=== PATIENT | male | born 1975 | race Caucasian/White ===

== ENCOUNTER 2020-05-09 13:14 | Emergency (ER) | payer MEDICAID, OTHER ==
[~2020-05-09] VITALS: Ht 188 cm; Wt 81.6 kg
[2020-05-09] MEDS ORDERED: cefTRIAXone 1,000 MG/2.86 ml vial (IM ONLY) IM STA (13:38)
--- NOTE | 2020-05-09 13:43 | ED Integumentary General ---
General Chief Complaint: Skin/Wound Problems Stated Complaint: WOUND ON BUTTOCKS Nursing Triage Note: PT PRESENTS TO ED VIA POV FROM HOME WITH COMPLAINTS OF L BUTTOCK WOUND X 2 1/2 MONTHS FROM A WORK INJURY. PT REPORTS IT HAS STRTED DRAINING AND IS FOUL SMELLING. Source: patient Exam Limitations: no limitations History of Present Illness Date Seen by Provider: May 09, 2020 Time Seen by Provider: 13:26 Initial Comments Patient presents ER by private conveyance with chief complaint that 2-1/2 months ago he fell on a metal grate while at work and he it had been healing there is 2 small puncture wounds on his left buttock however in the past week or 2 he started covering it and alcohol and it was getting worse. He is having increased pain and discomfort but no fever chills. It is draining. Patient states he recently moved here from [place] and used to follow with a primary care doctor but does not take any medications or have any significant medical history. Allergies and Home Medications Allergies Coded Allergies: No Known Drug Allergies (Unverified , 05/09/20) Patient Home Medication List Home Medication List Reviewed: Yes Review of Systems Review of Systems Constitutional: No chills, No diaphoresis EENTM: No ear discharge, No ear pain Respiratory: No cough, No short of breath Cardiovascular: No chest pain, No palpitations Gastrointestinal: No abdominal pain, No nausea Genitourinary: No discharge, No dysuria Musculoskeletal: No back pain, No joint pain Skin: see HPI All Other Systems Reviewed Negative Unless Noted: Yes Past Zlaptbi-Quvpre-Uqjqax Hx Patient Social History Alcohol Use: Occasionally Uses Alcohol Beverage of Choice: Beer Recreational Drug Use: No Smoking Status: Current Everyday Smoker Type Used: Cigarettes Recent Foreign Travel: No Contact w/Someone Who Travel: No Recent Infectious Disease Expo: No Recent Hopitalizations: No Physical Abuse: No Sexual Abuse: No Mistreated: No Fear: No Seasonal Allergies Seasonal Allergies: No Past Medical History Surgeries: Yes (l femur fx repair) Respiratory: No Cardiac: No Neurological: No Genitourinary: No Gastrointestinal: No Musculoskeletal: No Endocrine: No HEENT: No Cancer: No Psychosocial: Yes Anxiety Integumentary: No Blood Disorders: No Adverse Reaction/Blood Tranf: No Physical Exam Vital Signs Vital Signs - First Documented 05/09/20 13:24 Temp 35.8 Pulse 73 Resp 18 B/P (MAP) 125/95 (105) Pulse Ox 98 Capillary Refill : Less Than 3 Seconds General Appearance: WD/WN, no apparent distress HEENT: PERRL/EOMI, pharynx normal Neck: full range of motion, supple, normal inspection Cardiovascular: normal peripheral pulses, regular rate, rhythm Respiratory: lungs clear, normal breath sounds, no respiratory distress, no acc essory muscle use Gastrointestinal: non tender, soft Skin: other (Purplish indurated firm tender 5 x 10 cm area over the left buttock with 2 ragged puncture wounds that appear to be old and are draining serous fluid only. No fluctuance palpable. No extension into the perineum) Progress/Results/Core Measures Results/Orders My Orders Orders - BLAINE MORRELL Ceftriaxone For Im Use (Rocephin For Im (05/09/20 13:38) Lidocaine 1% Inj 20 Ml (Xylocaine 1% Inj (05/09/20 13:45) Vital Signs/I&O 05/09/20 13:24 Temp 35.8 Pulse 73 Resp 18 B/P (MAP) 125/95 (105) Pulse Ox 98 Blood Pressure Mean: 105 Progress Progress Note : Time: 13:47 Progress Note Does not appear to extend towards a Teto's gangrene. Plan to give him a dose of Rocephin put him on Bactrim and have him follow-up outpatient with Dr. Thibodeaux. Called and alerted Dr. Thibodeaux to the case who will follow him in the clinic. Departure Impression Primary Impression: Wound, open, buttock Qualified Codes: S31.829A - Unspecified open wound of left buttock, initial encounter Disposition: 01 HOME, SELF-CARE Condition: Stable Departure-Patient Inst. Decision time for Depature: 13:49 Referrals: BROOKS THIBODEAUX DO NO,LOCAL PHYSICIAN (PCP) Primary Care Physician Patient Instructions: Wound Care (DC) Add. Discharge Instructions: Keep the wound clean with regular soap and water only. No alcohol, hydrogen peroxide, chlorhexidine, iodine. Use regular soap and water, shampoo, body wash etc. Keep a clean, dry gauze dressing over the wounds to catch the drainage. Change it daily or more frequently if it becomes soiled. Call the surgeon, Dr. Thibodeaux and request follow-up appointment by early next week. Bactrim 1 tablet twice a day with food. Stay off of your left buttock. All discharge instructions reviewed with patient and/or family. Voiced understanding. Scripts Sulfamethoxazole/Trimethoprim (Bactrim Ds Tablet) 1 Each Tablet 1 EACH PO BID for 7 Days, #14 TAB 0 Refills Prov: BLAINE MORRELL 05/09/20 Work/School Note: Work Release Form Date Seen in the Emergency Department: May 09, 2020 Return to Work: May 10, 2020 Restrictions: Need Release from Doctor Other Restrictions Listed Below: Minimize sitting position until 05/17/2019 Copy Copies To 1: BROOKS THIBODEAUX DO BLAINE MORRELL May 09, 2020 13:43
[2020-05-09] MEDS ORDERED: LIDOCAINE 1% INJ 20 ML 20 ML VIAL INJ ONE (13:45)
[2020-05-09] MEDS ORDERED: SULF1TAB35 PO (13:51)
[2020-05-09] MEDS ORDERED: TETANUS,DIPTH,PERTUSS P/F (BOOSTRIX) 0.5 ML VIAL IM ONE (14:00)
[2020-05-09 14:04] VITALS: BP 124/90
== END 2020-05-09 14:04 | disposition home or self-care (01) ==
LOC: ER 13:18
DX: S31.823A Puncture wound without foreign body of left buttock, initial encounter (principal); F17.210 Nicotine dependence, cigarettes, uncomplicated; Z23 Encounter for immunization; W18.39XA Other fall on same level, initial encounter
CPT/HCPCS: 90715; 99284

== ENCOUNTER 2020-09-07 15:20 | Inpatient (IN) | payer MEDICAID ==
[~2020-09-07] VITALS: Ht 188 cm; Wt 78.1 kg
[~2020-09-07 15:20] MED LIST: SULF1TAB35 PO
[2020-09-07] MEDS ORDERED: VANCOMYCIN INJECTION 1,000 MG in NS (IVPB) 250 ML IV SCH (15:45)
[2020-09-07] MEDS ORDERED: PIPERACILLIN SODIUM/TAZOBACTAM 4.5 GM in NS (IVPB) 100 ML IV ONE (15:45)
--- NOTE | 2020-09-07 15:47 | ED Integumentary General ---
General Chief Complaint: Skin/Wound Problems Stated Complaint: WOUND INFECTION Nursing Triage Note: ARRIVED VIA AMB TO ROOM 7. STATES APPX 6 MONTHS AGO AT WORK HE SLIPPED ON A GRATE THAT STABBED HIM IN THE LEFT BUTTOCK. HAS HAD OFF AND ON INFECTIONS IN THIS AREA. PT STATES IT IS PAINFUL TO SIT AND IS DRAINING. Source: patient Exam Limitations: no limitations History of Present Illness Date Seen by Provider: Sep 07, 2020 Time Seen by Provider: 15:45 Initial Comments Ongoing wound infection to the left buttock. This began after he fell on a grate while at work in [place] in mid February and sustained two puncture wounds over the left ischium. He moved here in March and was seen here in April. He was given a prescription for antibiotics which did temporarily help to improve his symptoms. However over the past few days has been getting worse and has had some symptoms that remind him of when he first comes down with a cold--general malaise, achy. He is otherwise healthy and does not take any medications. Timing/Duration: constant Severity: moderate Associated Symptoms: denies symptoms Allergies and Home Medications Allergies Coded Allergies: No Known Drug Allergies (Unverified , 05/09/20) Home Medications No Active Prescriptions or Reported Meds Patient Home Medication List Home Medication List Reviewed: Yes Review of Systems Review of Systems Constitutional: see HPI EENTM: see HPI Respiratory: no symptoms reported Cardiovascular: no symptoms reported Genitourinary: no symptoms reported Musculoskeletal: see HPI Skin: no symptoms reported Psychiatric/Neurological: No Symptoms Reported Endocrine: No Symptoms Reported Past Uddiopi-Yyigrk-Ynazer Hx Patient Social History Alcohol Use: Occasionally Uses Alcohol Beverage of Choice: Beer Smoking Status: Current Everyday Smoker Type Used: Cigarettes Recent Infectious Disease Expo: No Recent Hopitalizations: No Seasonal Allergies Seasonal Allergies: No Past Medical History Surgeries: Yes (l femur fx repair) Respiratory: No Cardiac: No Neurological: No Genitourinary: No Gastrointestinal: No Musculoskeletal: No Endocrine: No HEENT: No Cancer: No Psychosocial: Yes Anxiety Integumentary: No Blood Disorders: No Adverse Reaction/Blood Tranf: No Physical Exam Vital Signs Vital Signs - First Documented 09/07/20 15:30 Temp 37.2 Pulse 97 Resp 16 B/P (MAP) 143/96 (112) Pulse Ox 97 O2 Delivery Room Air Capillary Refill : Less Than 3 Seconds General Appearance: WD/WN, no apparent distress HEENT: PERRL/EOMI, normal ENT inspection Cardiovascular: regular rate, rhythm, no murmur Respiratory: normal breath sounds, no respiratory distress, no accessory muscle use Extremities: normal range of motion, non-tender Neurologic/Psychiatric: alert, normal mood/affect, oriented x 3 Skin: normal color, warm/dry, other (The left buttock is nearly entirely indurated and one large conglomeration of abscesses with several small open areas of drainage) Skin Problem Character: abscess Progress/Results/Core Measures Results/Orders Lab Results Laboratory Tests Test 09/07/20 15:50 Range/Units White Blood Count 6.6 4.3-11.0 10^3/uL Red Blood Count 4.17 L 4.30-5.52 10^6/uL Hemoglobin 13.3 13.3-17.7 g/dL Hematocrit 40 40-54 % Mean Corpuscular Volume 95 80-99 fL Mean Corpuscular Hemoglobin 32 25-34 pg Mean Corpuscular Hemoglobin Concent 34 32-36 g/dL Red Cell Distribution Width 12.1 10.0-14.5 % Platelet Count 179 130-400 10^3/uL Mean Platelet Volume 9.2 9.0-12.2 fL Immature Granulocyte % (Auto) 0 % Neutrophils (%) (Auto) 57 42-75 % Lymphocytes (%) (Auto) 23 12-44 % Monocytes (%) (Auto) 17 H 0-12 % Eosinophils (%) (Auto) 3 0-10 % Basophils (%) (Auto) 1 0-10 % Neutrophils # (Auto) 3.8 1.8-7.8 10^3/uL Lymphocytes # (Auto) 1.5 1.0-4.0 10^3/uL Monocytes # (Auto) 1.1 H 0.0-1.0 10^3/uL Eosinophils # (Auto) 0.2 0.0-0.3 10^3/uL Basophils # (Auto) 0.1 0.0-0.1 10^3/uL Immature Granulocyte # (Auto) 0.0 0.0-0.1 10^3/uL Neutrophils % (Manual) 55 % Lymphocytes % (Manual) 31 % Monocytes % (Manual) 5 % Eosinophils % (Manual) 5 % Band Neutrophils 1 % Blood Morphology Comment NORMAL Sodium Level 134 L 135-145 MMOL/L Potassium Level 3.6 3.6-5.0 MMOL/L Chloride Level 98 98-107 MMOL/L Carbon Dioxide Level 26 21-32 MMOL/L Anion Gap 10 5-14 MMOL/L Blood Urea Nitrogen 6 L 7-18 MG/DL Creatinine 0.74 0.60-1.30 MG/DL Estimat Glomerular Filtration Rate > 60 BUN/Creatinine Ratio 8 Glucose Level 86 70-105 MG/DL Lactic Acid Level 0.97 0.50-2.00 MMOL/L Calcium Level 8.2 L 8.5-10.1 MG/DL Corrected Calcium 8.8 8.5-10.1 MG/DL Total Bilirubin 0.4 0.1-1.0 MG/DL Aspartate Amino Transf (AST/SGOT) 45 H 5-34 U/L Alanine Aminotransferase (ALT/SGPT) 29 0-55 U/L Alkaline Phosphatase 73 40-136 U/L Total Protein 7.6 6.4-8.2 GM/DL Albumin 3.3 3.2-4.5 GM/DL My Orders Orders - REGINA MARTINEZ APRN Cbc With Automated Diff (09/07/20 15:43) Comprehensive Metabolic Panel (09/07/20 15:43) Ed Iv/Invasive Line Start (09/07/20 15:43) Piperacillin Sodium/Tazobactam (Zosyn Vi (09/07/20 15:45) Vancomycin Injection (Vancomycin Injecti (09/07/20 15:45) Wound Culture (09/07/20 15:44) Blood Culture (09/07/20 15:44) Lactic Acid Analyzer (09/07/20 15:44) Lidocaine/Epi 1% 1:100,000 (Lidocaine 1% (09/07/20 16:00) Fentanyl Inj (Sublimaze Injection) (09/07/20 16:00) Lidocaine/Epi 2% 1:100,000 (Xylocaine/Ep (09/07/20 15:50) Manual Differential (09/07/20 15:50) Hydromorphone Injection (Dilaudid Inject (09/07/20 16:15) Medications Given in ED Current Medications Medications Dose Ordered Sig/Kala Route Start Time Stop Time Status Last Admin Dose Admin Fentanyl Citrate 50 mcg ONCE ONCE IVP 09/07/20 16:00 09/07/20 16:01 DC 09/07/20 15:59 50 MCG Hydromorphone HCl 0.5 mg ONCE ONCE IV 09/07/20 16:15 09/07/20 16:16 DC 09/07/20 16:18 0.5 MG Piperacillin Sod/ Tazobactam Sod 4.5 gm/Sodium Chloride 100 ml @ 200 mls/hr ONCE ONCE IV 09/07/20 15:45 09/07/20 16:14 DC 09/07/20 16:44 200 MLS/HR Vital Signs/I&O 09/07/20 15:30 Temp 37.2 Pulse 97 Resp 16 B/P (MAP) 143/96 (112) Pulse Ox 97 O2 Delivery Room Air Blood Pressure Mean: 112 Departure Communication (Admissions) 1619-Dr. Thibodeaux has been down here to see the patient. We gave him 50 mcg of fentanyl then to add incision and drainage under local anesthesia here. Wounds were then packed with plain packing. Impression Primary Impression: Cellulitis and abscess of buttock Disposition: ADMITTED INPATIENT Condition: Stable Admissions Decision to Admit Reason: Admit from ER (General) Decision to Admit/Date: Sep 07, 2020 Time/Decision to Admit Time: 16:21 Departure-Patient Inst. Referrals: NO,LOCAL PHYSICIAN (PCP/Family) Primary Care Physician Scripts No Active Prescriptions or Reported Meds Images Torso/Trunk 1 - Cellulitis, Tenderness REGINA MARTINEZ APRN Sep 07, 2020 15:47
[2020-09-07] MEDS ORDERED: LIDOCAINE/EPI 2% 1:100,00 (XYLOCAINE) 20 ML VIAL ONE (15:50)
[2020-09-07 15:58] LABS: BASOPHILS # (AUTO) 0.1 10^3/uL (0.0-0.1); BASOPHILS % (AUTO) 1 % (0-10); EOSINOPHILS # (AUTO) 0.2 10^3/uL (0.0-0.3); EOSINOPHILS % (AUTO) 3 % (0-10); HEMATOCRIT 40 % (40-54); HEMOGLOBIN 13.3 g/dL (13.3-17.7); LYMPHOCYTES # (AUTO) 1.5 10^3/uL (1.0-4.0); LYMPHOCYTES % (AUTO) 23 % (12-44); MEAN CORPUSCULAR HEMOGLOBIN 32 pg (25-34); MEAN CORPUSCULAR HGB CONC 34 g/dL (32-36); MEAN CORPUSCULAR VOLUME 95 fL (80-99); MEAN PLATELET VOLUME 9.2 fL (9.0-12.2); MONOCYTES # (AUTO) 1.1 10^3/uL (0.0-1.0); MONOCYTES % (AUTO) 17 % (0-12); NEUTROPHILS # (AUTO) 3.8 10^3/uL (1.8-7.8); NEUTROPHILS % (AUTO) 57 % (42-75); PLATELET COUNT 179 10^3/uL (130-400); WHITE BLOOD COUNT 6.6 10^3/uL (4.3-11.0)
[2020-09-07] MEDS ORDERED: fentaNYL INJ 100 MCG/2 ML AMP IVP ONE (16:00)
[2020-09-07] MEDS ORDERED: LIDOCAINE/EPI 1%-1:100,000 (XYLOCAINE) 50 ML INJ ONE (16:00)
[2020-09-07] MEDS ORDERED: HYDROmorphone 2 MG/ML VIAL (DILAUDID) IV ONE (16:15)
[2020-09-07 16:25] LABS: BAND NEUTROPHILS 1 %; EOSINOPHILS % (MANUAL) 5 %; LYMPHOCYTES % (MANUAL) 31 %; MONOCYTES % (MANUAL) 5 %; NEUTROPHILS % (MANUAL) 55 %; RBC MORPH NORMAL
[2020-09-07 16:30] LABS: ALANINE AMINOTRANSFERASE 29 U/L (0-55); ALBUMIN 3.3 GM/DL (3.2-4.5); ALKALINE PHOSPHATASE 73 U/L (40-136); BILIRUBIN,TOTAL 0.4 MG/DL (0.1-1.0); BUN/CREATININE RATIO 8; CALCIUM 8.2 MG/DL (8.5-10.1); CARBON DIOXIDE 26 MMOL/L (21-32); CHLORIDE 98 MMOL/L (98-107); CREATININE SERUM 0.74 MG/DL (0.60-1.30); GFR ESTIMATED > 60; GLUCOSE 86 MG/DL (70-105); POTASSIUM 3.6 MMOL/L (3.6-5.0); SODIUM 134 MMOL/L (135-145); TOTAL PROTEIN 7.6 GM/DL (6.4-8.2)
[2020-09-07] MEDS ORDERED: LIDOCAINE/EPI 2% 1:100,00 (XYLOCAINE) 20 ML VIAL INJ ONE (16:30)
[2020-09-07 17:20] VITALS: BP 120/76
[2020-09-07] MEDS ORDERED: VANCOMYCIN 1250 MG/NS 250 ML IVPB IV NR ×2 (18:00)
[2020-09-07] MEDS ORDERED: ONDANSETRON 4 MG/2 ML (SDV) Z0FRAN IV PRN (18:00)
[2020-09-07] MEDS: HYDROmorphone 2 MG/ML VIAL (DILAUDID) IV PRN (18:30)
[2020-09-07] MEDS: LACTATED RINGERS 1,000 ML IV SCH (18:30)
[2020-09-07 19:10] VITALS: BP 109/73
--- NOTE | 2020-09-07 20:59 | History & Physical-Surgical ---
History of Present Illness History of Present Illness Reason for visit/HPI Chief complaint left buttock abscess Patient is a 45-year-old male who has a left buttock abscess that he states started last February. He states this occurred after a great at an [employer] in company stuck him in 2 places in the left buttock. He had ongoing infections to the left buttock. He states he had taken antibiotics which did improve this temporarily. He states that it has had drainage. He has moderate tenderness to the left buttock area. He is having drainage from the area that is purulent. Sitting on the area makes it worse. The antibiotics he took previously did make a little bit better he states. Denies any nausea vomiting fever sweats chills shortness of breath or chest pain. Date of Admission Sep 07, 2020 at 16:15 Date Seen by a Provider: Sep 07, 2020 Time Seen by a Provider: 16:00 I consulted on this patient on 09/07/20 20:53 Attending Physician Brooks Thibodeaux DO Admitting Physician No,Local Physician Consult Allergies and Home Medications Allergies Coded Allergies: No Known Drug Allergies (Unverified , 05/09/20) Home Medications No Active Prescriptions or Reported Meds Patient Home Medication List Home Medication List Reviewed: Yes Past Qpromni-Gqddnn-Utxarl Hx Patient Social History Smoking Status: Light Tobacco Smoker Type Used: Cigarettes Recent Hopitalizations: No Alcohol Use?: Yes Have you traveled recently?: No Seasonal Allergies Seasonal Allergies: No Surgeries History of Surgeries: Yes (l femur fx repair) Respiratory History of Respiratory Disorde: No Cardiovascular History of Cardiac Disorders: No Neurological History of Neurological Disord: No Genitourinary History of Genitourinary Disor: No Gastrointestinal History of Gastrointestinal Di: No Musculoskeletal History of Musculoskeletal Dis: No Endocrine History of Endocrine Disorders: No HEENT History of HEENT Disorders: No Cancer History of Cancer: No Psychosocial History of Psychiatric Problem: Yes Behavioral Health Disorders: Anxiety Integumentary History of Skin or Integumenta: No Blood Transfusions History of Blood Disorders: No Adverse Reaction to a Blood Tr: No Reviewed Nursing Assessment Reviewed/Agree w Nursing PMH: Yes Family Medical History Significant Family History: No Pertinent Family Hx Review of Systems Constitutional: No chills, No diaphoresis EENTM: No blurred vision, No double vision Respiratory: No cough, No dyspnea on exertion Cardiovascular: No chest pain, No palpitations Gastrointestinal: No abdominal pain, No nausea, No vomiting Genitourinary: No decreased output, No discharge Musculoskeletal: No back pain, No joint pain Skin: other (Changes of erythema and drainage from left buttock) Psychiatric/Neurological: Denies Anxiety, Denies Depressed, Denies Emotional Problems All Other Systems Reviewed Negative Unless Noted: Yes (Negative excepted noted.) Physical Exam Vital Signs Vital Signs - First Documented 09/07/20 15:30 Temp 37.2 Pulse 97 Resp 16 B/P (MAP) 143/96 (112) Pulse Ox 97 O2 Delivery Room Air Capillary Refill : Less Than 3 Seconds Height, Weight, BMI Height: '" Weight: lbs. oz. kg; 21.24 BMI Method: General Appearance: No Apparent Distress HEENT: PERRL/EOMI, TMs Normal, Normal ENT Inspection Neck: Normal Inspection, Non Tender Respiratory: Chest Non Tender, Lungs Clear, No Accessory Muscle Use Cardiovascular: Regular Rate, Rhythm, No JVD Gastrointestinal: Non Tender, Soft Rectal: Deferred Back: No CVA Tenderness, No Vertebral Tenderness Extremity: Non Tender, No Calf Tenderness Neurologic/Psychiatric: Alert, Oriented x3, Normal Mood/Affect Skin: Warm/Dry, Erythema (Left buttocks with some areas of fluctuance and some areas of drainage multiple areas of induration as well overall dimensions approximately 12 x 10 cm, some area goes just to the perineum) Lymphatic: No Adenopathy Data Review Labs Laboratory Tests 09/07/20 15:50: White Blood Count 6.6, Red Blood Count 4.17L, Hemoglobin 13.3, Hematocrit 40, Mean Corpuscular Volume 95, Mean Corpuscular Hemoglobin 32, Mean Corpuscular Hemoglobin Concent 34, Red Cell Distribution Width 12.1, Platelet Count 179, Mean Platelet Volume 9.2, Immature Granulocyte % (Auto) 0, Neutrophils (%) (Auto) 57, Lymphocytes (%) (Auto) 23, Monocytes (%) (Auto) 17H, Eosinophils (%) (Auto) 3, Basophils (%) (Auto) 1, Neutrophils # (Auto) 3.8, Lymphocytes # (Auto) 1.5, Monocytes # (Auto) 1.1H, Eosinophils # (Auto) 0.2, Basophils # (Auto) 0.1, Immature Granulocyte # (Auto) 0.0, Neutrophils % (Manual) 55, Lymphocytes % (Manual) 31, Monocytes % (Manual) 5, Eosinophils % (Manual) 5, Band Neutrophils 1, Blood Morphology Comment NORMAL, Sodium Level 134L, Potassium Level 3.6, Chloride Level 98, Carbon Dioxide Level 26, Anion Gap 10, Blood Urea Nitrogen 6L , Creatinine 0.74, Estimat Glomerular Filtration Rate > 60, BUN/Creatinine Ratio 8, Glucose Level 86, Lactic Acid Level 0.97, Calcium Level 8.2L, Corrected Calcium 8.8, Total Bilirubin 0.4, Aspartate Amino Transf (AST/SGOT) 45H, Alanine Aminotransferase (ALT/SGPT) 29, Alkaline Phosphatase 73, Total Protein 7.6, Albumin 3.3 Assessment/Plan Assessment/Plan Admission Diagonsis Left buttock abscess Left buttock cellulitis History of puncture wound Patient is a 45-year-old male with left buttock that appears to have abscess with fluctuance and small areas of drainage. There is lots of induration present still. Patient to be admitted for IV antibiotics. Patient understands risk and benefits of having incision and drainage performed here in the ER which she understands and wishes to proceed. Please see that dictation. Patient still may need further surgical intervention to try to improve this. Patient will be n.p.o. after midnight. Patient had all questions answered. Pain controlled. Admission Status: Inpatient Order (span 2 midnights) Reason for Inpatient Admission: Patient will need IV antibiotics and continued monitoring and may need further surgical intervention and wound care which will require at minimum to midnight stays. Assessment/Plan Left buttock abscess Left buttock cellulitis History of puncture wound Patient is a 45-year-old male with left buttock that appears to have abscess with fluctuance and small areas of drainage. There is lots of induration present still. Patient to be admitted for IV antibiotics. Patient understands risk and benefits of having incision and drainage performed here in the ER which she understands and wishes to proceed. Please see that dictation. Patient still may need further surgical intervention to try to improve this. Patient will be n.p.o. after midnight. Patient had all questions answered. Pain controlled. BROOKS THIBODEAUX DO Sep 07, 2020 20:59
[2020-09-07] MEDS: DOCUSATE SODIUM 100 MG (COLACE) CAP PO SCH (21:09)
[2020-09-07] MEDS: PIPERACILLIN/TAZO 4.5 GM/NS 100 ML IV SCH ×2 (23:53)
[2020-09-07] MEDS: HYDROcodone/APAP 5 MG/325 MG (LORTAB) TAB PO PRN (23:54)
[2020-09-07 23:56] VITALS: BP 117/77
--- NOTE | 2020-09-08 01:28 | OPERATIVE REPORT ---
DATE OF SERVICE: 09/07/2020 PREOPERATIVE DIAGNOSIS: Left buttock abscess. POSTOPERATIVE DIAGNOSIS: Left buttock abscess. PROCEDURE: Incision and drainage of left buttock abscess. SURGEON: Brooks Thibodeaux DO ANESTHESIA: Local. ESTIMATED BLOOD LOSS: Minimal. COMPLICATIONS: None. INDICATIONS: The patient is a 45-year-old male who has had ongoing wound infection of the left buttock. 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 The patient states that he has had this flareup with infection, which he was given antibiotics, which did improve it. However, over the last few days, he has had worsening symptoms and discomfort. He states that sitting on makes worse. He has had some drainage from it. The patient was discussed risks and benefits of have the area have incision and drainage and he understands and wishes to proceed. DESCRIPTION OF PROCEDURE: The patient was prepped and draped in sterile fashion of left buttock over the area of fluctuance. Local anesthetic was infiltrated and 11 blade scalpel was used to make an incision that was through the skin and into the subcutaneous tissue. A pocket was present, which expressed some fluid, cultures have already been obtained. Blunt dissection was then used to break up some loculations and there is a separate portion just inferior to the area of incision that was separate that had fluctuance. This area had local anesthetic infiltrated and 11 blade scalpel was used to make a small skin incision, which was then erupted a small amount of purulent-appearing material. The wounds were then irrigated and packed. The area was washed, and dried and sterile bandage was applied. The patient tolerated procedure well without any complications. RECOMMENDATIONS: The patient will be admitted for IV antibiotics and continued monitoring. The patient understands he may need further surgical intervention, but we will continue to monitor. Job ID: [id number] DocumentID: [id number] Dictated Date: 09/07/2020 20:36:01 Motion Picture Equipment Supervisor Date: 09/08/2020 01:26:54 Dictated By: BROOKS THIBODEAUX DO [facility]
[2020-09-08] MEDS: LACTATED RINGERS 1,000 ML IV SCH ×4 (03:51→21:43)
[2020-09-08] MEDS: VANCOMYCIN 1 GM/NS 250 ML IVPB IV SCH ×6 (03:51→17:51)
[2020-09-08 03:53] VITALS: BP 111/76
[2020-09-08] MEDS: HYDROmorphone 2 MG/ML VIAL (DILAUDID) IV PRN ×4 (04:01→23:48)
[2020-09-08] MEDS: PIPERACILLIN/TAZO 4.5 GM/NS 100 ML IV SCH ×6 (06:42→23:44)
[2020-09-08 07:20] VITALS: BP 124/83
[2020-09-08 08:44] LABS: BASOPHILS % (AUTO) 1 % (0-10); EOSINOPHILS # (AUTO) 0.1 10^3/uL (0.0-0.3); EOSINOPHILS % (AUTO) 2 % (0-10); HEMATOCRIT 36 % (40-54); HEMOGLOBIN 12.3 g/dL (13.3-17.7); LYMPHOCYTES # (AUTO) 0.7 10^3/uL (1.0-4.0); LYMPHOCYTES % (AUTO) 15 % (12-44); MEAN CORPUSCULAR HEMOGLOBIN 32 pg (25-34); MEAN CORPUSCULAR HGB CONC 34 g/dL (32-36); MEAN CORPUSCULAR VOLUME 94 fL (80-99); MEAN PLATELET VOLUME 9.4 fL (9.0-12.2); MONOCYTES # (AUTO) 0.8 10^3/uL (0.0-1.0); MONOCYTES % (AUTO) 16 % (0-12); NEUTROPHILS # (AUTO) 3.1 10^3/uL (1.8-7.8); NEUTROPHILS % (AUTO) 65 % (42-75); PLATELET COUNT 143 10^3/uL (130-400); WHITE BLOOD COUNT 4.8 10^3/uL (4.3-11.0)
[2020-09-08 09:05] LABS: CHLORIDE 100 MMOL/L (98-107); POTASSIUM 3.8 MMOL/L (3.6-5.0); SODIUM 135 MMOL/L (135-145)
[2020-09-08 09:06] LABS: CALCIUM 7.9 MG/DL (8.5-10.1)
[2020-09-08 09:07] LABS: GLUCOSE 106 MG/DL (70-105)
[2020-09-08 09:09] LABS: CARBON DIOXIDE 24 MMOL/L (21-32)
[2020-09-08 09:11] LABS: CREATININE SERUM 0.74 MG/DL (0.60-1.30); GFR ESTIMATED > 60
[2020-09-08 09:12] LABS: BUN/CREATININE RATIO 7
[2020-09-08] MEDS ORDERED: ACETAMINOPHEN 500 MG TAB (TYLENOL) ONE (09:31)
[2020-09-08] MEDS: DOCUSATE SODIUM 100 MG (COLACE) CAP PO SCH ×2 (09:53→19:36)
[2020-09-08] MEDS: HYDROcodone/APAP 5 MG/325 MG (LORTAB) TAB PO PRN ×2 (09:53→19:58)
--- NOTE | 2020-09-08 11:12 | Progress Note - Surgery ---
Subjective Date Seen by a Provider: September 08, 2020 Time Seen by a Provider: 11:07 Subjective/Events-last exam Patient still with pain in the left buttock. Still having some drainage as well. Patient had incision and drainage in the ER yesterday. Patient is currently n.p.o. Patient with fever. Denies nausea vomiting fever sweats chills shortness of breath or chest pain. Focused Exam Lactate Level 09/07/20 15:50: Lactic Acid Level 0.97 Objective Exam Vital Signs Date Time Temp Pulse Resp B/P (MAP) Pulse Ox O2 Delivery O2 Flow Rate FiO2 09/08/20 08:00 95 Room Air 09/08/20 07:20 40.2 101 18 124/83 (97) 94 Room Air 09/08/20 03:53 37.1 77 18 111/76 (88) 99 Room Air 09/08/20 00:24 38.7 09/07/20 23:56 38.5 97 20 117/77 (90) 99 Room Air 09/07/20 20:58 95 Room Air 09/07/20 19:10 37.5 99 20 109/73 (85) 95 Room Air 09/07/20 17:37 Room Air 09/07/20 17:20 37.0 98 18 120/76 (91) 99 Room Air 09/07/20 17:13 81 16 135/81 98 Room Air 09/07/20 15:30 37.2 97 16 143/96 (112) 97 Room Air I & O 09/08/20 07:00 Intake Total 1728.5 ml Output Total 0 ml Balance 1728.5 ml Capillary Refill : Less Than 3 Seconds General Appearance: No Apparent Distress HEENT: PERRL/EOMI, TMs Normal, Normal ENT Inspection Neck: Full Range of Motion, Normal Inspection, Non Tender Respiratory: Chest Non Tender, No Accessory Muscle Use Cardiovascular: Regular Rate, Rhythm, No JVD Gastrointestinal: non tender, soft Extremity: Non Tender, No Calf Tenderness Neurologic/Psychiatric: Alert, Oriented x3, Normal Mood/Affect Skin: Warm/Dry, Erythema (with packed wound once removed inside still slight drainage mildly purulent/serous fluid tender to touch, packing removed ) Lymphatic: No Adenopathy Results Lab Laboratory Tests 09/07/20 15:50: White Blood Count 6.6, Red Blood Count 4.17L, Hemoglobin 13.3, Hematocrit 40, Mean Corpuscular Volume 95, Mean Corpuscular Hemoglobin 32, Mean Corpuscular Hemoglobin Concent 34, Red Cell Distribution Width 12.1, Platelet Count 179, Mean Platelet Volume 9.2, Immature Granulocyte % (Auto) 0, Neutrophils (%) (Auto) 57, Lymphocytes (%) (Auto) 23, Monocytes (%) (Auto) 17H, Eosinophils (%) (Auto) 3, Basophils (%) (Auto) 1, Neutrophils # (Auto) 3.8, Lymphocytes # (Auto) 1.5, Monocytes # (Auto) 1.1H, Eosinophils # (Auto) 0.2, Basophils # (Auto) 0.1, Immature Granulocyte # (Auto) 0.0, Neutrophils % (Manual) 55, Lymphocytes % (Manual) 31, Monocytes % (Manual) 5, Eosinophils % (Manual) 5, Band Neutrophils 1, Blood Morphology Comment NORMAL, Sodium Level 134L, Potassium Level 3.6, Chloride Level 98, Carbon Dioxide Level 26, Anion Gap 10, Blood Urea Nitrogen 6L , Creatinine 0.74, Estimat Glomerular Filtration Rate > 60, BUN/Creatinine Ratio 8, Glucose Level 86, Lactic Acid Level 0.97, Calcium Level 8.2L, Corrected Calcium 8.8, Total Bilirubin 0.4, Aspartate Amino Transf (AST/SGOT) 45H, Alanine Aminotransferase (ALT/SGPT) 29, Alkaline Phosphatase 73, Total Protein 7.6, Albumin 3.3 09/08/20 08:30: White Blood Count 4.8, Red Blood Count 3.85L, Hemoglobin 12.3L, Hematocrit 36L, Mean Corpuscular Volume 94, Mean Corpuscular Hemoglobin 32, Mean Corpuscular Hemoglobin Concent 34, Red Cell Distribution Width 11.9, Platelet Count 143, Mean Platelet Volume 9.4, Immature Granulocyte % (Auto) 0, Neutrophils (%) (Auto) 65, Lymphocytes (%) (Auto) 15, Monocytes (%) (Auto) 16H, Eosinophils (%) (Auto) 2, Basophils (%) (Auto) 1, Neutrophils # (Auto) 3.1, Lymphocytes # (Auto) 0.7L, Monocytes # (Auto) 0.8, Eosinophils # (Auto) 0.1, Basophils # (Auto) 0.0, Immature Granulocyte # (Auto) 0.0, Sodium Level 135, Potassium Level 3.8, Chloride Level 100, Carbon Dioxide Level 24, Anion Gap 11, Blood Urea Nitrogen 5L, Creatinine 0.74, Estimat Glomerular Filtration Rate > 60, BUN/Creatinine Ratio 7, Glucose Level 106H, Calcium Level 7.9L, Procalcitonin 0.12H Microbiology 09/07/20 Gram Stain - Final, Resulted 09/07/20 Wound Culture, Resulted Pending Assessment/Plan Assessment/Plan Assessment/Plan Left buttock abscess Left buttock cellulitis History of puncture wound Patient is a 45-year-old male with left buttock that appears to have abscess possible with fluctuance still and small areas of drainage. There is lots of induration present still. Patient to continue IV antibiotics. I discussed going to the operating room today and doing further incision and drainage and debridment if needed, patient will not consent to this at this time, understanding risks and benefits. Patient will be n.p.o. after midnight again so if he looks like he would again benefit further surgical intervention he will be npo. Patient had all questions answered. BROOKS IBRAHIM DO September 08, 2020 11:12
[2020-09-08] MEDS ORDERED: ACETAMINOPHEN 325 MG TABLET PO PRN (11:15)
[2020-09-08 11:20] VITALS: BP 124/83
--- NOTE | 2020-09-08 11:33 | Consultation - Hospitalist ---
HPI History of Present Illness: HPI/Chief Complaint Terrence Carroll is a 45-year-old male with no known past medical history who presented with a left buttock abscess. He had a puncture wound about 6 months ago and received a course of oral antibiotics. He did not follow-up with anyone after this. He says that the wound never resolved. He has been having fevers. He has no other complaints or concerns. He occasionally smokes cigarettes and drinks alcohol, but not every day. Source: patient Exam Limitations: no limitations Date Seen 09/08/20 Attending Physician Sai Thibodeaux DO PCP No,Local Physician Referring Physician Date of Admission Sep 07, 2020 at 16:15 Home Medications & Allergies Home Medications Reviewed patient Home Medication Reconciliation performed by pharmacy medication reconciliations maintenance parts technician and/or nursing. Patients Allergies have been reviewed. Allergies Allergies Coded Allergies No Known Drug Allergies ([id number]/20) Patient Social History Tobacco Use?: Yes Smoking Status: Light Tobacco Smoker Smokeless Tobacco Frequency: Light User Use of E-Cig and/or Vaping dev: No Substance use?: No Alcohol Use?: Yes Alcohol type: Beer Alcohol Frequency: Several times a month Pt stated abuse/neglect: No Immunizations Up To Date Influenza Vaccine Up-to-Date: No; Not Current Tetanus Booster (TDap): Less Than 5 Years Hepatitis A: No Hepatitis B: No TB Skin Test: Negative Current Status Do you have an Advance Directi: No Communicates: Verbally Primary Language: Faroese Preferred Spoken Language: Faroese Is interpretation needed?: No Implanted or Applied Medical D: None Past Medical History Tobacco abuse Family Medical History Family Hx: Motherbreast cancer Review of Systems Constitutional: fever EENTM: no symptoms reported Respiratory: no symptoms reported Cardiovascular: no symptoms reported Gastrointestinal: no symptoms reported Genitourinary: no symptoms reported Musculoskeletal: no symptoms reported Skin: no symptoms reported Psychiatric/Neurological: No Symptoms Reported Physical Exam Physical Exam Vital Signs Vital Signs - First Documented 09/07/20 15:30 Temp 37.2 Pulse 97 Resp 16 B/P (MAP) 143/96 (112) Pulse Ox 97 O2 Delivery Room Air Capillary Refill : Less Than 3 Seconds Height, Weight, BMI Height: '" Weight: lbs. oz. kg; 21.24 BMI Method: General Appearance: No Apparent Distress, WD/WN HEENT: PERRL/EOMI, Pharynx Normal Neck: Normal Inspection, Supple Respiratory: Lungs Clear, Normal Breath Sounds, No Respiratory Distress Cardiovascular: Regular Rate, Rhythm, No Edema, No Murmur Gastrointestinal: Normal Bowel Sounds, Non Tender, Soft Extremity: Other (Left buttock wound with bandage in place) Neurologic/Psychiatric: Alert, Oriented x3, Normal Mood/Affect Skin: Other (Left buttock wound with bandage in place) Lymphatic: No Adenopathy Results Results/Procedures Labs Laboratory Tests 09/07/20 15:50 09/08/20 08:30 Patient resulted labs reviewed. Assessment/Plan Assessment and Plan Assess & Plan/Chief Complaint Left buttock abscess s/p I&D in ER Surgery consulted, appreciate assistance Wound culture pending, gram stain with gram positive cocci in chains and gram negative rods Started on Vancomycin and Zosyn Surgery recommending further debridement, patient refused NPO at midnight for possible debridement tomorrow morning DVT prophylaxis: ambulation Thank you for the consult. The hospitalist service will continue to follow peripherally. Please call with any questions or concerns. Diagnosis/Problems Diagnosis/Problems (1) Cellulitis and abscess of buttock Status: Acute FELTON SMITH MD September 08, 2020 11:33
[2020-09-08 15:30] VITALS: BP 104/68
[2020-09-08] MEDS ORDERED: TROUGH ORDER-PHARMACY XX NR (17:00)
[2020-09-08 20:00] VITALS: BP 111/69
[2020-09-09 00:17] VITALS: BP 112/67
[2020-09-09] MEDS: VANCOMYCIN 1 GM/NS 250 ML IVPB IV SCH ×4 (02:37→14:41)
[2020-09-09] MEDS: HYDROcodone/APAP 5 MG/325 MG (LORTAB) TAB PO PRN ×3 (02:48→19:42)
[2020-09-09 04:59] VITALS: BP 102/65
[2020-09-09 07:33] VITALS: BP 98/63
[2020-09-09] MEDS: PIPERACILLIN/TAZO 4.5 GM/NS 100 ML IV SCH ×6 (08:24→23:18)
[2020-09-09] MEDS: DOCUSATE SODIUM 100 MG (COLACE) CAP PO SCH ×2 (08:24→19:17)
[2020-09-09] MEDS: HYDROmorphone 2 MG/ML VIAL (DILAUDID) IV PRN ×3 (08:30→23:38)
[2020-09-09 09:42] LABS: HEMOGLOBIN 12.3 g/dL (13.3-17.7); WHITE BLOOD COUNT 4.9 10^3/uL (4.3-11.0)
[2020-09-09] MEDS: LACTATED RINGERS 1,000 ML IV SCH ×2 (09:51→17:19)
[2020-09-09 10:00] LABS: CHLORIDE 103 MMOL/L (98-107); POTASSIUM 3.6 MMOL/L (3.6-5.0); SODIUM 137 MMOL/L (135-145)
[2020-09-09 10:02] LABS: GLUCOSE 94 MG/DL (70-105)
[2020-09-09 10:03] LABS: CARBON DIOXIDE 23 MMOL/L (21-32)
[2020-09-09 10:06] LABS: GFR ESTIMATED > 60
[2020-09-09 10:07] LABS: BUN/CREATININE RATIO 6
--- NOTE | 2020-09-09 10:11 | Progress Note - Surgery ---
Subjective Date Seen by a Provider: September 09, 2020 Time Seen by a Provider: 09:14 Subjective/Events-last exam Last patient still with fever. Patient states that the left buttock is unchanged. Still having drainage from it. Patient pain is moderate to severe depending if he is laying on it or touching. He denies any nausea vomiting sweats chills shortness of breath or chest pain. Focused Exam Lactate Level 09/07/20 15:50: Lactic Acid Level 0.97 Objective Exam Vital Signs Date Time Temp Pulse Resp B/P (MAP) Pulse Ox O2 Delivery O2 Flow Rate FiO2 09/09/20 07:33 36.9 66 18 98/63 (75) 99 Room Air 09/09/20 04:59 36.9 56 16 102/65 (77) 97 Room Air 09/09/20 01:58 35.8 09/09/20 01:57 35.8 09/09/20 00:17 38.8 77 18 112/67 (82) 96 Room Air 09/08/20 20:00 Room Air 09/08/20 20:00 38.2 87 20 111/69 (83) 96 Room Air 09/08/20 15:30 37.0 72 20 104/68 (80) 98 Room Air 09/08/20 11:20 38.0 89 18 124/83 (97) 94 Room Air I & O 09/09/20 06:59 Intake Total 1632.5 ml Balance 1632.5 ml Capillary Refill : Less Than 3 Seconds General Appearance: No Apparent Distress, WD/WN HEENT: PERRL/EOMI, Pharynx Normal Neck: Normal Inspection, Supple Respiratory: Chest Non Tender, No Accessory Muscle Use, No Respiratory Distress Cardiovascular: Regular Rate, Rhythm, No Edema, No JVD Gastrointestinal: non tender, soft Extremity: Other (left buttock with erythema and induration, drainage serous/slightly purulent material area of fluctuation.) Neurologic/Psychiatric: Alert, Oriented x3, Normal Mood/Affect Skin: Erythema, Other (Left buttock erythema as noted above) Lymphatic: No Adenopathy Results Lab Laboratory Tests 09/08/20 16:55: Vancomycin Level Trough 34.7*H 09/09/20 09:03: White Blood Count 4.9, Red Blood Count 3.87L, Hemoglobin 12.3L, Hematocrit 37L, Mean Corpuscular Volume 96, Mean Corpuscular Hemoglobin 32, Mean Corpuscular Hemoglobin Concent 33, Red Cell Distribution Width 12.0, Platelet Count 151, Mean Platelet Volume 10.0 Microbiology 09/07/20 Blood Culture - Preliminary, Resulted No growth 09/07/20 Gram Stain - Final, Resulted 09/07/20 Wound Culture - Preliminary, Resulted Culture In Progress Assessment/Plan Assessment/Plan Assessment/Plan Left buttock abscess Left buttock cellulitis History of puncture wound of left buttock. Patient is a 45-year-old male with left buttock that appears to have abscess possible with fluctuance still and small areas of drainage. There is lots of induration present still. Patient to continue IV antibiotics. I discussed again going to the operating room today which i feel he needs and doing further incision and drainage and debridement, patient will not consent to this at this time again, understanding risks and benefits. He understands he could become septic and deteriorate rapidly. Patient will be n.p.o. after midnight again so if he looks like he would again benefit further surgical intervention he will be npo. Patient had all questions answered. BROOKS IBRAHIM DO September 09, 2020 10:11
[2020-09-09 11:40] VITALS: BP 100/64
[2020-09-09] MEDS ORDERED: TROUGH ORDER-PHARMACY XX NR (12:00)
[2020-09-09 15:04] VITALS: BP 125/82
[2020-09-09 20:15] VITALS: BP 92/54
[2020-09-10] VITALS (14 sets, daily range): BP systolic 93–142; BP diastolic 50–101
[2020-09-10] MEDS: LACTATED RINGERS 1,000 ML IV SCH ×4 (01:59→16:47)
[2020-09-10] MEDS: VANCOMYCIN 1 GM/NS 250 ML IVPB IV SCH ×2 (03:15)
[2020-09-10] MEDS: HYDROmorphone 2 MG/ML VIAL (DILAUDID) IV PRN ×4 (03:19→20:36)
[2020-09-10] MEDS: PIPERACILLIN/TAZO 4.5 GM/NS 100 ML IV SCH ×6 (06:18→22:41)
[2020-09-10] MEDS: DOCUSATE SODIUM 100 MG (COLACE) CAP PO SCH ×2 (08:02→20:37)
[2020-09-10] MEDS ORDERED: LACTATED RINGERS 1,000 ML IV PRN (10:30)
[2020-09-10] MEDS ORDERED: SEVOFLURANE (ULTANE) 15 ML INHAL SOLN ONE ×2 (10:55→13:14)
[2020-09-10] MEDS ORDERED: proPOfol 200 MG/20 ML (DIPRIVAN) VIAL IV ONE (10:55)
[2020-09-10] MEDS ORDERED: LIDOCAINE PF 2% 5 ML (XYLOCAINE) VIAL ONE (10:55)
[2020-09-10] MEDS ORDERED: fentaNYL INJ 100 MCG/2 ML AMP ONE ×2 (10:55→12:41)
[2020-09-10] MEDS ORDERED: MIDAZOLAM 2 MG/2 ML (VERSED) VIAL ONE (10:56)
[2020-09-10] MEDS ORDERED: LIDOCAINE/EPI 1%-1:100,000 (XYLOCAINE) 20ML ONE (11:11)
--- NOTE | 2020-09-10 12:08 | Progress Note - Surgery ---
Subjective Date Seen by a Provider: September 10, 2020 Time Seen by a Provider: 12:03 Subjective/Events-last exam Patient no change. Now okay with proceeding with surgery. He reports still having some fevers. Denies n/v sweats chills shortness of breath or chest pain. Focused Exam Lactate Level 09/07/20 15:50: Lactic Acid Level 0.97 Objective Exam Vital Signs Date Time Temp Pulse Resp B/P (MAP) Pulse Ox O2 Delivery O2 Flow Rate FiO2 09/10/20 11:11 37.0 70 16 114/72 (86) 95 Room Air 09/10/20 08:00 95 Room Air 09/10/20 07:56 37.5 67 16 118/73 (88) 96 Room Air 09/10/20 03:28 36.8 71 18 93/50 (64) 98 Room Air 09/10/20 00:00 36.6 68 20 109/71 (84) 97 Room Air 09/09/20 20:15 37.6 66 20 92/54 (67) 94 Room Air 09/09/20 20:00 Room Air 09/09/20 15:04 37.4 72 18 125/82 (96) 98 Room Air I & O 09/10/20 07:00 Intake Total 1880 ml Balance 1880 ml Capillary Refill : Less Than 3 Seconds General Appearance: No Apparent Distress, WD/WN HEENT: PERRL/EOMI, Pharynx Normal Neck: Normal Inspection, Supple Respiratory: Chest Non Tender, No Accessory Muscle Use, No Respiratory Distress Cardiovascular: Regular Rate, Rhythm, No Edema, No JVD Gastrointestinal: non tender, soft Extremity: Other (left buttock with erythema and induration, drainage serous/slightly purulent material area of fluctuation.) Neurologic/Psychiatric: Alert, Oriented x3, Normal Mood/Affect Skin: Erythema, Other (Left buttock erythema as noted above) Lymphatic: No Adenopathy Results Lab Microbiology 09/07/20 Blood Culture - Preliminary, Resulted No growth 09/07/20 Gram Stain - Final, Complete 09/07/20 Wound Culture - Final, Complete Actinomyces turicensis Mixed Bacterial Eli Assessment/Plan Assessment/Plan Assessment/Plan Left buttock abscess Left buttock cellulitis History of puncture wound of left buttock. Patient is a 45-year-old male with left buttock that appears to have abscess with fluctuance still and small areas of drainage. There is less induration but some areas present still. Patient to continue IV antibiotics. I discussed again going to the operating room today which i feel he needs and doing further incision and drainage and debridement washout and all other indicated procedures, patient will consent to this now, he is understanding risks and benefits. Patient will be n.p.o. Patient had all questions answered. BROOKS IBRAHIM DO September 10, 2020 12:08
[2020-09-10] MEDS ORDERED: ONDANSETRON 4 MG/2 ML (SDV) Z0FRAN ONE (12:41)
[2020-09-10] MEDS ORDERED: BSS 15 ML ONE (13:20)
--- NOTE | 2020-09-10 13:39 | Anesthesia-General Post-Op ---
General Patient Condition Mental Status/LOC: Same as Preop Cardiovascular: Satisfactory Nausea/Vomiting: Absent Respiratory: Satisfactory Pain: Controlled Complications: Absent Post Op Complications Complications None Follow Up Care/Instructions Patient Instructions None needed. Anesthesia/Patient Condition Patient Condition Patient is doing well, no complaints, stable vital signs, no apparent adverse anesthesia problems. No complications reported per nursing. PENELOPE ROBB CRNA September 10, 2020 13:39
[2020-09-10] MEDS ORDERED: morphine INJ 10 MG/ML 1ML (SYR OR VIAL) IVP ONE (13:45)
[2020-09-10] MEDS ORDERED: MEPERIDINE (DEMEROL) INJ 50 MG/ML IVP ONE (13:45)
[2020-09-10] MEDS ORDERED: ONDANSETRON 4 MG/2 ML (SDV) Z0FRAN IVP PRN (13:45)
[2020-09-10] MEDS ORDERED: PROMETHAZINE INJ 25 MG/ML (PHENERGAN) AMP IVP ONE (13:45)
[2020-09-10] MEDS ORDERED: fentaNYL INJ 100 MCG/2 ML AMP IVP ONE (13:45)
[2020-09-10] MEDS: HYDROmorphone 2 MG/ML VIAL (DILAUDID) IV ONE ×2 (13:57→14:05)
--- NOTE | 2020-09-10 20:17 | Progress Note-Post Operative ---
Post-Operative Progess Note Surgeon (s)/Visual Artist (s) Surgeon BROOKS IBRAHIM DO Visual Artist: na Pre-Operative Diagnosis left buttock abscess Post-Operative Diagnosis same with extension into the scrotum Procedure & Operative Findings Date of Procedure 09/10/20 Procedure Performed/Findings incision and drainage with debridement left buttock and scrotum 14x5cm and 4.5x4 cm Anesthesia Type general Estimated Blood Loss Estimated blood loss (mL): minimal Specimens/Packing Specimens Removed skin and subcutaneous tissue Packing: iodoform and kerlex with betadine BROOKS IBRAHIM DO September 10, 2020 20:17
--- NOTE | 2020-09-10 22:47 | OPERATIVE REPORT ---
DATE OF SERVICE: 09/10/2020 PREOPERATIVE DIAGNOSIS: Left buttock abscess. POSTOPERATIVE DIAGNOSIS: Left buttock abscess into the scrotum. PROCEDURE: Incision and drainage and debridement of left buttock and scrotum. Overall dimensions 14 x 5 cm and second area of 4.5 x 4 cm. SURGEON: Brooks Thibodeaux DO ANESTHESIA: General. ESTIMATED BLOOD LOSS: Minimal. COMPLICATIONS: None. SPECIMENS: Skin and subcutaneous tissue. INDICATIONS: The patient is a 45-year-old male who has chronic abscess to the left buttock with likely extension into the perineum and scrotal area. The patient has refused surgical intervention for 2 days, which today we discussed again, which he agrees to proceed. Consent was signed in the chart. DESCRIPTION OF PROCEDURE: The patient was taken to the operating suite, was placed in the lithotomy position, was prepped and draped in sterile fashion. Timeout was performed. From previous opening incision and drainage, this area was further opened over area of fluctuance, which some slight purulent material was present. The pocket was then continued to be opened and had some slight necrotic-appearing tissue as well, which cautery was used to begin to debride this area. The cavity continued to extend up towards the perineum, which was tracking, was opened up, which then did go into the scrotum, which was opened up. Any necrotic tissue was removed with cautery dissection. A second area of fluctuance was noted on the more lateral aspect of the left buttock which had a small incision, this incision was opened up further. The purulent material rectum was removed and the pocket had loculations broken up. All areas were irrigated with copious amounts of irrigation and then suctioned. Hemostasis was achieved. The wounds were then packed with iodoform and Kerlix soaked with Betadine. The areas were then washed and dried. Sterile bandages were applied. The patient tolerated procedure well without any complications, taken to recovery room in stable condition. Job ID: [id number] DocumentID: [id number] Dictated Date: 09/10/2020 20:21:49 Remotely Piloted Vehicle Controller Date: 09/10/2020 22:47:28 Dictated By: BROOKS THIBODEAUX DO
[2020-09-11 00:02] VITALS: BP 111/72
[2020-09-11] MEDS: HYDROcodone/APAP 5 MG/325 MG (LORTAB) TAB PO PRN ×2 (00:11→09:24)
[2020-09-11] MEDS: HYDROmorphone 2 MG/ML VIAL (DILAUDID) IV PRN ×6 (00:11→21:09)
[2020-09-11] MEDS: LACTATED RINGERS 1,000 ML IV SCH ×3 (04:41→22:49)
[2020-09-11 04:48] VITALS: BP 117/79
[2020-09-11 05:51] LABS: HEMOGLOBIN 12.1 g/dL (13.3-17.7); WHITE BLOOD COUNT 5.2 10^3/uL (4.3-11.0)
[2020-09-11 06:12] LABS: BUN/CREATININE RATIO 8; CALCIUM 8.1 MG/DL (8.5-10.1); CARBON DIOXIDE 26 MMOL/L (21-32); CHLORIDE 104 MMOL/L (98-107); CREATININE SERUM 0.66 MG/DL (0.60-1.30); GFR ESTIMATED > 60; GLUCOSE 157 MG/DL (70-105); POTASSIUM 3.8 MMOL/L (3.6-5.0); SODIUM 137 MMOL/L (135-145)
[2020-09-11] MEDS: PIPERACILLIN/TAZO 4.5 GM/NS 100 ML IV SCH ×6 (06:25→22:49)
[2020-09-11 08:00] VITALS: BP 132/88
[2020-09-11] MEDS: DOCUSATE SODIUM 100 MG (COLACE) CAP PO SCH ×2 (08:41→21:03)
[2020-09-11 12:00] VITALS: BP 120/72
[2020-09-11 16:18] VITALS: BP 108/71
--- NOTE | 2020-09-11 18:25 | Progress Note - Surgery ---
Subjective Date Seen by a Provider: September 11, 2020 Time Seen by a Provider: 08:24 Subjective/Events-last exam Patient states that he is doing okay. Extremely sore which pain medication helps. Not having as much drainage he thinks. Overall feels may be slightly better. Denies any nausea vomiting fever sweats chills shortness of breath or chest pain. Objective Exam Vital Signs Date Time Temp Pulse Resp B/P (MAP) Pulse Ox O2 Delivery O2 Flow Rate FiO2 09/11/20 12:00 36.1 58 20 120/72 (88) 96 Room Air 09/11/20 08:00 95 Room Air 09/11/20 08:00 36.0 70 20 132/88 (103) 95 Room Air 09/11/20 05:21 36.3 09/11/20 04:48 36.3 53 20 117/79 (92) 96 Room Air 09/11/20 00:02 36.4 54 20 111/72 (85) 95 Room Air 09/10/20 20:42 97 Room Air 09/10/20 20:16 36.1 56 20 118/76 (90) 98 Room Air I & O 09/11/20 07:00 Intake Total 2740 ml Output Total 100 ml Balance 2640 ml Capillary Refill : Less Than 3 Seconds General Appearance: No Apparent Distress, WD/WN HEENT: PERRL/EOMI, Pharynx Normal Neck: Normal Inspection, Supple Respiratory: Chest Non Tender, No Accessory Muscle Use, No Respiratory Distress Cardiovascular: Regular Rate, Rhythm, No Edema, No JVD Gastrointestinal: non tender, soft Extremity: Other (left buttock with less erythema and induration, drainage serous, less tender wound base appears clean and both areas of left buttock) Neurologic/Psychiatric: Alert, Oriented x3, Normal Mood/Affect Skin: Erythema (less), Other (Left buttock erythema as noted above) Lymphatic: No Adenopathy Results Lab Laboratory Tests 09/11/20 05:31: White Blood Count 5.2, Red Blood Count 3.83L, Hemoglobin 12.1L, Hematocrit 36L, Mean Corpuscular Volume 95, Mean Corpuscular Hemoglobin 32, Mean Corpuscular Hemoglobin Concent 33, Red Cell Distribution Width 11.9, Platelet Count 195, Me an Platelet Volume 10.0, Sodium Level 137, Potassium Level 3.8, Chloride Level 104, Carbon Dioxide Level 26, Anion Gap 7, Blood Urea Nitrogen 5L, Creatinine 0.66, Estimat Glomerular Filtration Rate > 60, BUN/Creatinine Ratio 8, Glucose Level 157H, Calcium Level 8.1L Microbiology 09/07/20 Blood Culture - Preliminary, Resulted No growth 09/07/20 Gram Stain - Final, Complete 09/07/20 Wound Culture - Final, Complete Actinomyces turicensis Mixed Bacterial Eli Assessment/Plan Assessment/Plan Assessment/Plan Left buttock abscess Left buttock cellulitis History of puncture wound of left buttock. Status post incision and drainage debridement Patient feeling a little bit better. Wound appears clean. Will have wound VAC placed today. Continue Zosyn, pain control home soon BROOKS IBRAHIM DO September 11, 2020 18:25
[2020-09-11 19:33] VITALS: BP 112/70
[2020-09-12 00:59] VITALS: BP 122/84
[2020-09-12] MEDS: HYDROmorphone 2 MG/ML VIAL (DILAUDID) IV PRN ×3 (05:59→13:17)
[2020-09-12] MEDS: PIPERACILLIN/TAZO 4.5 GM/NS 100 ML IV SCH ×6 (06:00→23:09)
[2020-09-12] MEDS: HYDROcodone/APAP 5 MG/325 MG (LORTAB) TAB PO PRN ×2 (06:00→22:00)
[2020-09-12 06:02] VITALS: BP 119/79
[2020-09-12 07:47] VITALS: BP 115/74
[2020-09-12] MEDS: DOCUSATE SODIUM 100 MG (COLACE) CAP PO SCH ×2 (08:25→21:03)
[2020-09-12] MEDS: LACTATED RINGERS 1,000 ML IV SCH ×2 (10:10→14:45)
[2020-09-12 12:20] VITALS: BP 118/79
[2020-09-12 16:00] VITALS: BP 110/76
--- NOTE | 2020-09-12 22:09 | Progress Note - Surgery ---
Subjective Date Seen by a Provider: September 12, 2020 Time Seen by a Provider: 17:17 Subjective/Events-last exam Patient pain controlled. Happy with wound VAC. Feels like he is getting better. No new complaints. Denies any nausea vomiting fever sweats chills shortness of breath or chest pain at this time. Objective Exam Vital Signs Date Time Temp Pulse Resp B/P (MAP) Pulse Ox O2 Delivery O2 Flow Rate FiO2 09/12/20 16:00 36.3 58 20 110/76 (87) 98 Room Air 09/12/20 12:20 36.3 50 17 118/79 (92) 98 Room Air 09/12/20 08:00 Room Air 09/12/20 07:47 36.3 59 17 115/74 (88) 98 Room Air 09/12/20 06:29 36.6 09/12/20 06:29 36.6 09/12/20 06:02 36.6 69 20 119/79 (92) 96 Room Air 09/12/20 00:59 36.6 53 20 122/84 (97) 96 Room Air I & O 09/12/20 06:59 Intake Total 1945 ml Output Total 1 ml Balance 1944 ml Capillary Refill : Less Than 3 Seconds General Appearance: No Apparent Distress, WD/WN HEENT: PERRL/EOMI, Pharynx Normal Neck: Normal Inspection, Supple Respiratory: Chest Non Tender, No Accessory Muscle Use, No Respiratory Distress Cardiovascular: Regular Rate, Rhythm, No Edema, No JVD Gastrointestinal: non tender, soft Extremity: Other (left buttock with less erythema and induration, wound VAC in place) Neurologic/Psychiatric: Alert, Oriented x3, Normal Mood/Affect Skin: Erythema (less), Other (Left buttock erythema as noted above) Lymphatic: No Adenopathy Results Lab Microbiology 09/07/20 Blood Culture - Preliminary, Resulted No growth 09/07/20 Gram Stain - Final, Complete 09/07/20 Wound Culture - Final, Complete Actinomyces turicensis Mixed Bacterial Eli Assessment/Plan Assessment/Plan Assessment/Plan Left buttock abscess Left buttock cellulitis History of puncture wound of left buttock. Status post incision and drainage debridement Patient feeling better. wound VAC placed today. Continue Zosyn, pain control home soon Convert to oral pain medication only likely home tomorrow with wound VAC. Social service consult and arrange wound care. BROOKS IBRAHIM DO September 12, 2020 22:09
[2020-09-12 23:37] VITALS: BP 104/64
[2020-09-13] MEDS: LACTATED RINGERS 1,000 ML IV SCH ×3 (04:53→15:33)
[2020-09-13] MEDS: HYDROcodone/APAP 5 MG/325 MG (LORTAB) TAB PO PRN ×4 (04:55→22:02)
[2020-09-13] MEDS: PIPERACILLIN/TAZO 4.5 GM/NS 100 ML IV SCH ×6 (06:10→22:03)
[2020-09-13 08:00] VITALS: BP 110/72
[2020-09-13] MEDS: DOCUSATE SODIUM 100 MG (COLACE) CAP PO SCH ×2 (09:11→22:03)
[2020-09-13 16:20] VITALS: BP 103/64
--- NOTE | 2020-09-13 16:51 | Progress Note - Surgery ---
Subjective Date Seen by a Provider: September 13, 2020 Time Seen by a Provider: 12:06 Subjective/Events-last exam Patient resting in bed. He has wound VAC in place. Patient pain controlled to tolerable state. Patient denies any nausea vomiting fever sweats chills shortness of breath or chest pain. Objective Exam Vital Signs Date Time Temp Pulse Resp B/P (MAP) Pulse Ox O2 Delivery O2 Flow Rate FiO2 09/13/20 16:20 36.2 53 18 103/64 (77) 91 Room Air 09/13/20 08:00 36.1 56 18 110/72 (85) 96 Room Air 09/13/20 08:00 96 Room Air 09/12/20 23:37 36.3 57 20 104/64 (77) 96 Room Air 09/12/20 21:55 Room Air I & O 09/13/20 06:59 Intake Total 1790 ml Balance 1790 ml Capillary Refill : Less Than 3 Seconds General Appearance: No Apparent Distress, WD/WN HEENT: PERRL/EOMI, Pharynx Normal Neck: Normal Inspection, Supple Respiratory: Chest Non Tender, No Accessory Muscle Use, No Respiratory Distress Cardiovascular: Regular Rate, Rhythm, No Edema, No JVD Gastrointestinal: non tender, soft Extremity: Other (left buttock with about the same erythema and induration, wound VAC in place) Neurologic/Psychiatric: Alert, Oriented x3, Normal Mood/Affect Skin: Erythema (less), Other (Left buttock erythema as noted above) Lymphatic: No Adenopathy Results Lab Microbiology 09/07/20 Blood Culture - Final, Complete No growth 09/07/20 Gram Stain - Final, Complete 09/07/20 Wound Culture - Final, Complete Actinomyces turicensis Mixed Bacterial Eil Assessment/Plan Assessment/Plan Assessment/Plan Left buttock abscess Left buttock cellulitis History of puncture wound of left buttock. Status post incision and drainage debridement Patient feeling better each day. wound VAC in place continue Zosyn, pain control home soon Convert to oral pain medication only likely home tomorrow with wound VAC. Social service consult and arrange wound care. Awaiting approval for home wound VAC therefore likely home tomorrow. BROOKS IBRAHIM DO September 13, 2020 16:51
[2020-09-14] VITALS: BP 98/65
[2020-09-14] MEDS: HYDROcodone/APAP 5 MG/325 MG (LORTAB) TAB PO PRN ×4 (05:14→16:40)
[2020-09-14] MEDS: PIPERACILLIN/TAZO 4.5 GM/NS 100 ML IV SCH ×4 (05:14→13:29)
[2020-09-14] MEDS: LACTATED RINGERS 1,000 ML IV SCH ×3 (05:15→13:29)
[2020-09-14 08:00] VITALS: BP 121/80
[2020-09-14] MEDS: DOCUSATE SODIUM 100 MG (COLACE) CAP PO SCH (08:08)
--- NOTE | 2020-09-14 14:13 | Progress Note - Surgery ---
Subjective Date Seen by a Provider: September 14, 2020 Time Seen by a Provider: 14:09 Subjective/Events-last exam Patient doing better. Patient with wound VAC in place which is making s ignificant difference to the wound. The wound bed is clean with good granulation tissue coming in. Minimal induration no purulent or infected appearance. Denies any nausea vomiting fever sweats chills shortness of breath or chest pain. Objective Exam Vital Signs Date Time Temp Pulse Resp B/P (MAP) Pulse Ox O2 Delivery O2 Flow Rate FiO2 09/14/20 08:30 Room Air 09/14/20 08:00 36.2 52 20 121/80 (94) 99 Room Air 09/14/20 00:00 36.4 58 17 98/65 (76) 97 Room Air 09/13/20 21:59 Room Air 09/13/20 16:20 36.2 53 18 103/64 (77) 91 Room Air I & O 09/14/20 07:00 Intake Total 1586 ml Balance 1586 ml Capillary Refill : Less Than 3 Seconds General Appearance: No Apparent Distress, WD/WN HEENT: PERRL/EOMI, Pharynx Normal Neck: Normal Inspection, Supple Respiratory: Chest Non Tender, No Accessory Muscle Use, No Respiratory Distress Cardiovascular: Regular Rate, Rhythm, No Edema, No JVD Gastrointestinal: non tender, soft Extremity: Other (left buttock with about the minimal erythema and induration, wound VAC in place the wound bed does have good granulation tissue no necrotic tissue healing nicely) Neurologic/Psychiatric: Alert, Oriented x3, Normal Mood/Affect Skin: Erythema (less), Other (Left buttock erythema as noted above) Lymphatic: No Adenopathy Results Lab Microbiology 09/07/20 Blood Culture - Final, Complete No growth 09/07/20 Gram Stain - Final, Complete 09/07/20 Wound Culture - Final, Complete Actinomyces turicensis Mixed Bacterial Eli Assessment/Plan Assessment/Plan Assessment/Plan Left buttock abscess Left buttock cellulitis History of puncture wound of left buttock. Status post incision and drainage debridement Patient feeling better each day. wound VAC in place I feel patient would benefit most from wound VAC therapy. If unable to go home with wound VAC patient will have to do wet-to-dry dressing changes daily. BROOKS IBRAHIM DO September 14, 2020 14:12
--- NOTE | 2020-09-14 14:17 | Discharge Inst-Simple/Standard ---
Discharge Inst-Standard Patient Instructions/Follow Up Plan of Care/Instructions/FU: 2 weeks Carlos Eduardo. If need assistance with dressing changes call Dr. Thibodeuax office to arrange daily dressings if need to do wet to dry. If can use wound vac will need changed thursday and fridays. Activity as Tolerated: No (No strenuous activity, no lifting greater than 15 pounds.) Discharge Diet: Regular Diet Other Inst to Patient Follow up Appt: Make appointment for 2 week. If wound vac in place needs changed Tuesdays and Fridays. If have to do wet to dry dressings, need to do daily. If need assistance can arrange with Dr. Thibodeaux's office. Instructions: No lifting greater than 15 pounds. No strenuous activity. May shower, no tub bath or soaking. No Smoking Skin/Wound Care: Wound care as noted above. Symptoms to Report: Appetite Changes, Extremity Discoloration, Numbness/Tingling, Swelling Increased, Bleeding Excessive, Eyesight Changes, Pain Increased, Urine Color Change, Constipation(Persistent), Fever over 101 degree F, Pain/Pressure in chest, Urinating Difficulty, Cough Up/Vomit Blood, Heart Beat Irreg/Pounding, Pain/Pressure in jaw, Vaginal Bleeding Increase, Cramps in feet or legs, Lightheadedness, Pain/Pressure in shoulder, Diarrhea(Persistent), Memory Changes Suddenly, Questions/Concerns, Weight gain consecutive days, Dizziness/Fainting, Nausea/Vomiting, Shortness of Breath, Weight gain over 2 pounds If questions or concerns contact your physician Or seek help at emergency department. BROOKS THIBODEAUX DO September 14, 2020 14:17
[2020-09-14 16:01] VITALS: BP 106/69
[2020-09-14 17:02] VITALS: BP 106/69
== END 2020-09-14 17:05 | disposition home or self-care (01) | DRG 572 ==
LOC: EDUNIT# 15:20 → ER 15:22 → 4TH 16:15
PROVIDERS: ADMIT Surgery; ATTEND Surgery
PROC: 0J990ZZ Drainage of Buttock Subcutaneous Tissue and Fascia, Open Approach (ICD-10-PCS; principal; 2020-09-07)
PROC: 0JB90ZZ Excision of Buttock Subcutaneous Tissue and Fascia, Open Approach (ICD-10-PCS; 2020-09-10)
PROC: 0VB50ZZ Excision of Scrotum, Open Approach (ICD-10-PCS; 2020-09-10)
PROC: 0V950ZZ Drainage of Scrotum, Open Approach (ICD-10-PCS; 2020-09-10)
DX: L02.31 Cutaneous abscess of buttock (principal); L03.317 Cellulitis of buttock; F17.210 Nicotine dependence, cigarettes, uncomplicated; F41.9 Anxiety disorder, unspecified; N49.2 Inflammatory disorders of scrotum
CPT/HCPCS: 10061; 36415; 45020; 80048; 80053; 80202; 83605; 84145; 85007; 85025; 85027; 87040; 87070; 87077; 87205; 88304; 96365; 96375